=== PATIENT | female | born 1960 ===

== ENCOUNTER 2024-02-24 05:10 | Day surgery (SDC) | payer OTHER ==
[2024-02-19 09:57] VITALS: BP 112/68
[2024-02-19 10:37] LABS: PH,URINE 5.5 (5.0-8.0); URINE APPEARANCE Cloudy; URINE BILIRRUBIN Negative (NEGATIVE); URINE BLOOD Negative; URINE COLOR Yellow; URINE GLUCOSE Negative (NEGATIVE); URINE KETONE Trace (NEGATIVE); URINE LEUKOCYTE Small; URINE NITRATE Negative; URINE PROTEIN Trace (NEGATIVE); URINE UROBILINOGEN 0.2 E.U./dl
[2024-02-19 10:41] LABS: HEMATOCRIT 41.8 % (36.0-45.00); MEAN CELL VOLUME 84.1 fL (80.00-100.00); MEAN CORPUSCULAR HEMOGLOBIN 28.2 pg (27.00-32.0); MEAN CORPUSCULAR HGB CONC 33.6 g/dl (32.0-36.0); PLATELET COUNT 283 K/uL (150-450); RED BLOOD COUNT 4.96 M/uL (4.00-6.00); RED CELL DISTRIBUTION WIDTH 14.2 % (11.5-14.5)
[2024-02-19 10:41] LABS: URINE BACTERIA 4109.9 uL (0.0-1933); URINE EPITHELIAL CELLS 73.8 uL (0.0-38.8); URINE RBC 22.4 uL (0.0-20.8); URINE WBC 52.5 uL (0.0-23.2)
[2024-02-19 11:07] LABS: URINE CAST 0.61 uL (0.0-1.40); URINE MUCUS MODERATE
[2024-02-19 11:15] LABS: INR 1.05; PARTIAL THROMBOPLASTIN TIME 30.5 SECONDS (22.0-34.0); PROTHROMBIN TIME 11.4 SECONDS (9.0-11.5)
[2024-02-19 11:42] LABS: ALBUMIN 4.4 gm/dL (3.4-5.0); BILIRUBIN TOTAL 0.45 mg/dL (0.3-1.2); CALCIUM 9.8 mg/dL (8.5-10.1); CREATININE SERUM 0.82 mg/dL (0.55-1.02); GFR 70.64; POTASSIUM 4.67 mEq/L (3.5-5.1); TOTAL PROTEIN 8.4 gm/dL (6.4-8.2)
[~2024-02-24] VITALS: Ht 160 cm; Wt 98.9 kg
[~2024-02-24 05:10] MED LIST: AMBIEN10 MG; BERBERINE500 MG PO; CATAFLAN 50MG; CLONAZEPAM0.5 M1; COZAAR25 MG PO; HYDRODIURIL12.5 MG PO; LEVSIN/SL0.125 MG SL; LEXAPRO 10MG; LEXAPRO20 MG; MAGNESIUM500 MG PO; MAXIMUM D3325 MCG PO; MOUNJARO5 MG/0.5 M; PERCOCET 5-3251 EACH PO; PROBIOTIC1 EAC4 PO; PROTONIX40 MG PO; REPATHA SU140 MG/1 M SUBCUTANEO; VITAMIN C500 M6 PO; WELLBUTRIN SR150 MG; WELLBUTRIN XL300 MG
[2024-02-24] MEDS ORDERED: POVIDONE-IODINE 118 ML BOTT TOP ONE ×2 (06:29→07:20)
[2024-02-24] MEDS ORDERED: BUPIVACAINE HCL/MPF 0.5% 30ML VIAL ONE ×2 (06:29→07:20)
[2024-02-24] MEDS ORDERED: DIBUCAINE 30 GM TUBE ONE ×2 (06:29→07:20)
[2024-02-24] MEDS ORDERED: HEMOSTATIC MATRIX 1 KIT KIT TOP ONE ×2 (06:29→07:20)
[2024-02-24] MEDS ORDERED: LIDOCAINE HCL 1%/EPINEPHRINE 20ML VIAL IJ ONE ×2 (06:30→07:20)
[2024-02-24] MEDS ORDERED: METRONIDAZOLE/SODIUM CHLORIDE 500 MG/100 ML PIGGYBACK IV ONE (06:30)
[2024-02-24] MEDS ORDERED: CEFTRIAXONE SODIUM 2,000 MG VIAL ONE (06:30)
[2024-02-24] MEDS ORDERED: CELECOXIB200 MG PO (10:25)
[2024-02-24] MEDS ORDERED: NEURONTIN300 MG PO (10:25)
[2024-02-24] MEDS ORDERED: PERCOCET 5-3251 EACH PO (10:25)
[2024-02-24] MEDS ORDERED: ONDANSETRON HCL 2 MG/ML VIAL ONE (10:35)
[2024-02-24] MEDS ORDERED: 0.9 % SODIUM CHLORIDE 500 ML IV ONE (11:00)
== END 2024-02-24 12:45 | disposition home or self-care (01) ==
LOC: CIR.AMB 05:10
PROVIDERS: ATTEND Surgery
DX: K60.1 Chronic anal fissure (principal); Z91.02 Food additives allergy status; E78.00 Pure hypercholesterolemia, unspecified; I10 Essential (primary) hypertension; E66.9 Obesity, unspecified

== ENCOUNTER 2024-10-24 17:00 | Emergency (ER) | payer OTHER ==
[~2024-10-24] VITALS: Ht 160 cm; Wt 104.3 kg
[~2024-10-24 17:00] MED LIST changes: +CELECOXIB200 MG PO; +NEURONTIN300 MG PO
[2024-10-24] MEDS ORDERED: METHYLPREDNISOLONE SOD SUCC 125 MG VIAL ONE (18:08)
[2024-10-24] MEDS ORDERED: DIPHENHYDRAMINE HCL 50 MG/ML VIAL 1ML ONE (18:08)
[2024-10-24] MEDS ORDERED: FAMOTIDINE/PF 20 MG/2 ML VIAL ONE (18:08)
[2024-10-24] MEDS ORDERED: ONDANSETRON HCL 2 MG/ML VIAL ONE (18:09)
[2024-10-24] MEDS ORDERED: FAMOTIDINE/PF 20 MG in 0.9 % SODIUM CHLORIDE 8 ML IV PUSH STA (18:22)
[2024-10-24] MEDS ORDERED: DIPHENHYDRAMINE HCL 50 MG/ML VIAL 1ML IV ONE (18:30)
[2024-10-24] MEDS ORDERED: METHYLPREDNISOLONE SOD SUCC 125 MG VIAL IV ONE (18:30)
[2024-10-24] MEDS ORDERED: ONDANSETRON HCL 2 MG/ML VIAL IV ONE (18:30)
[2024-10-24 18:42] LABS: HEMATOCRIT 45.8 % (36.0-45.00); HEMOGLOBIN 15.6 g/dL (12.0-15.00); MEAN CELL VOLUME 82.8 fL (80.00-100.00); MEAN CORPUSCULAR HEMOGLOBIN 28.2 pg (27.00-32.0); MEAN CORPUSCULAR HGB CONC 34.1 g/dl (32.0-36.0); PLATELET COUNT 356 K/uL (150-450); RED BLOOD COUNT 5.54 M/uL (4.00-6.00); RED CELL DISTRIBUTION WIDTH 13.4 % (11.5-14.5)
== END 2024-10-24 20:29 | disposition home or self-care (01) ==
LOC: ER 17:00
PROVIDERS: General Practice
DX: R21 Rash and other nonspecific skin eruption (principal); T78.40XA Allergy, unspecified, initial encounter; Z91.018 Allergy to other foods
CPT/HCPCS: 36415; 96365; 99282; J1200; J2405; J3490 ×2